=== PATIENT | male | born 1990 | race Two or more races ===

== ENCOUNTER 2024-08-07 13:14 | Emergency (ER) | payer MEDICAID ==
[~2024-08-07] VITALS: Ht 162.6 cm; Wt 72.6 kg
[2024-08-07] MEDS ORDERED: LIDOCAINE 1%-EPI 1:100,000 20 ML VIAL ONE (13:26)
[2024-08-07] MEDS ORDERED: TDAP DIPH,PERTUSS,TET VAC/PF 0.5 ML DISP.SYRIN IM ONE (13:26)
[2024-08-07] MEDS ORDERED: NEOMY/BACITRA/POLYMYXIN B OINT UD PACKET TP ONE (14:11)
[2024-08-07] MEDS: LIDOCAINE 1%-EPI 1:100,000 20 ML VIAL IJ ONE (14:20)
[2024-08-07] MEDS: TDAP DIPH,PERTUSS,TET VAC/PF 0.5 ML DISP.SYRIN IM ONE (14:22)
[2024-08-07] MEDS: NEOMY/BACITRA/POLYMYXIN B OINT UD PACKET TP ONE (14:25)
[2024-08-07 14:51] VITALS: BP 137/89; O2SAT 99
== END 2024-08-07 14:52 | disposition home or self-care (01) ==
LOC: ER 13:18
DX: S61.210A Laceration without foreign body of right index finger without damage to nail, initial encounter (principal); W27.0XXA Contact with workbench tool, initial encounter; Y93.89 Activity, other specified; Y92.098 Other place in other non-institutional residence as the place of occurrence of the external cause; Y99.8 Other external cause status
CPT/HCPCS: 12002; 90471; 90715; 99283; J3490; A4606; A4663

== ENCOUNTER 2024-08-10 10:55 | Emergency (ER) | payer MEDICAID ==
[~2024-08-10] VITALS: Ht 165.1 cm; Wt 77.1 kg
[2024-08-10 10:58] VITALS: O2SAT 97
[2024-08-10] MEDS ORDERED: CEPH500C2 PO (11:13)
[2024-08-10] MEDS ORDERED: IBUP-1955 PO (11:19)
[2024-08-10] MEDS ORDERED: NEOMY/BACITRA/POLYMYXIN B OINT UD PACKET TP ONE (11:24)
[2024-08-10] MEDS: NEOMY/BACITRA/POLYMYXIN B OINT UD PACKET TP ONE (11:40)
[2024-08-10] MEDS ORDERED: SULF1TAB48 PO (12:03)
== END 2024-08-10 12:32 | disposition home or self-care (01) ==
LOC: ER 10:55
DX: S61.210D Laceration without foreign body of right index finger without damage to nail, subsequent encounter (principal); Z48.00 Encounter for change or removal of nonsurgical wound dressing; X58.XXXD Exposure to other specified factors, subsequent encounter
CPT/HCPCS: A4606; A4663